=== PATIENT | male | born 1985 | race Caucasian/White ===

== ENCOUNTER 2024-05-01 10:11 | Outpatient (OUT) | payer BC, SELFPAY ==
[2024-05-01 11:00] LABS: Basophils Absolute Auto 0.1 10^3/uL (0.0-0.1); Basophils Percent Auto 1.1 % (0.2-2.0); Eosinophils Absolute Auto 0.1 10^3/uL (0.0-0.7); Eosinophils Percent Auto 1.9 % (0.9-7.0); Hematocrit 44.9 % (42.0-54.0); Hemoglobin 15.7 g/dL (14.0-18.0); Immature Granulocytes Abs Auto 0.02 10^3/uL (0.00-0.03); Immature Granulocytes Pct Auto 0.4 % (0.0-0.5); Lymphocytes Percent Auto 34.2 % (20.5-60.0); Mean Corpuscular Hemoglobin 29.5 pg (25.9-34.0); Mean Corpuscular Volume 84.2 fL (80.0-94.0); Monocytes Absolute Auto 0.4 10^3/uL (0.3-0.8); Monocytes Percent Auto 7.7 % (1.7-12.0); Neutrophils Absolute Auto 3.1 10^3/uL (1.4-6.5); Neutrophils Percent Auto 54.7 % (43.0-75.0); Platelet Count 307 10^3/uL (150-450); Red Blood Count 5.33 10^6/uL (4.70-6.10); Red Cell Distribution Width 11.9 % (11.0-15.0); White Blood Count 5.7 10^3/uL (4.0-11.0)
[2024-05-01 11:41] LABS: Alanine Aminotransferase 21 U/L (16-63); Albumin Globulin Ratio 1.3; Albumin Level 4.2 g/dL (3.4-5.0); Alkaline Phosphatase 60 U/L (46-116); Anion Gap 10.8; Aspartate Amino Transferase 15 U/L (15-37); BUN Creatinine Ratio 11.8; Bilirubin Direct 0.2 mg/dL (0.0-0.2); Bilirubin Total 1.4 mg/dL (0.2-1.0); Calcium 9.2 mg/dL (8.5-10.1); Carbon Dioxide 30.9 mmol/L (21.0-32.0); Chloride 105 mmol/L (98-107); Chol HDL Ratio 2.9; Cholesterol 175 mg/dL (<=200); Estimated GFR (African America >60 (>=60 mL/min/1.73m^2); Estimated GFR (Non-African Ame >60 (>=60 mL/min/1.73m^2); Globulin 3.3 g/dL; Glucose 109 mg/dL (74-106); HDL Cholesterol 60 mg/dL (40-60); LDL Cholesterol Calculated 91.6 mg/dL; Potassium 4.7 mmol/L (3.5-5.1); Sodium 142 mmol/L (136-145); Thyroid Stimulating Hormone 1.104 uIU/mL (0.358-3.740); Total Protein 7.5 g/dL (6.4-8.2); Triglycerides 117 mg/dL (<=150); VLDL CHOLESTEROL 23.4 mg/dL
[2024-05-01 11:46] LABS: Estimated Average Glucose 114 mg/dL; Glycohemoglobin A1C 5.6 % (4.5-6.2)
[2024-05-01 12:23] LABS: Prostate Specific Antigen Scrn 0.63 ng/mL (<=4.00)
== END 2024-05-01 10:12 | disposition home or self-care (01) ==
LOC: LAB 10:15
PROVIDERS: PCP Family Medicine; Visit Provider Family Medicine
DX: Z00.00 Encounter for general adult medical examination without abnormal findings (principal)
CPT/HCPCS: 36415; 80048; 80061; 80076; 83036; 84443; 85025; G0103

== ENCOUNTER 2024-08-04 15:57 | Outpatient (OUT) | payer BC, SELFPAY ==
--- NOTE | 2024-08-04 16:00 | XR_ITS ---
[place] [id number] Patient Name: HANNAH VELEZ MRN: [id number] date: 1985 Sex: M Assigned Patient Location: [facility] Current Patient Location: [facility] Accession/Order Number: [id number] Exam Date: 08/04/2024 17:09 Report Date: 08/04/2024 17:10 At the request of: DIA REYNOSO MD Procedure: XR lumbar spine 2-3V 2 views Lumbar Spine HISTORY: Left-sided lumbar pain for one week COMPARISON: None POSTSURGICAL CHANGES: None BONY ALIGNMENT: Adequate HYPERMOBILITY:No bending imaging. LISTHESIS:None FRACTURE: None DEGENERATIVE CHANGES: Unremarkable SOFT TISSUES: Unremarkable BONY MINERALIZATION:Adequate XR/XR lumbar spine 2-3V IMPRESSION: Unremarkable exam Impression dictated by: Milton Covarrubias M.D. 08/04/2024 5:10 PM Dictation Location: [place] [address] Electronically authenticated by: [id number] Y Date: 08/04/2024 17:10
--- OUTSIDE RECORDS SUMMARY | 2024-08-04 16:06 | XMS_ITS | CCD ---
Author Organization [facility] Care Team Providers Care Non Destructive Testing Inspector Name Role Phone DR DIA REYNOSO Consulting DR DIA Hunt Attending Unavailable DR DIA REYNOSO Admitting Dia Hunt MD Primary Care Provider [phone] Dia Reynoso MD Unavailable DIA REYNOSO Attending Unavailable DIA REYNOSO Attending Unavailable DIA REYNOSO Attending Unavailable Medications Current Medications Medication Drug Class(es) Dates Sig (Normalized) Sig (Original) cefdinir 300 mg oral capsule (2 sources) Cephalosporin Antibacterial Start: 12-12-2023 End: 12-22-2023 take 1 capsule by mouth in the morning cefdinir (Omnicef) 300 MG capsule Indications: Acute non-recurrent pansinusitis Take 1 capsule (300 mg) by mouth in the morning and 1 capsule (300 mg) before bedtime. Do all this for 10 days. 20 capsule 12/12/2023 12/22/2023 Active cyclobenzaprine hydrochloride 10 mg oral tablet (2 sources) Muscle Relaxant Start: 08-03-2024 take 1 tablet by mouth three times daily as needed for muscle spasms cyclobenzaprine (Flexeril) 10 MG tablet Indications: Acute left-sided low back pain with left-sided sciatica Take 1 tablet (10 mg) by mouth 3 (three) times a day as needed for muscle spasms 30 tablet 1 08/03/2024 Active predniSONE 50 mg oral tablet (4 sources) Start: 08-03-2024 End: 08-09-2024 take 1 tablet by mouth once daily predniSONE (Deltasone) 50 MG tablet Indications: Acute left-sided low back pain with left-sided sciatica Take 1 tablet (50 mg) by mouth Daily for 6 days 6 tablet 08/03/2024 08/09/2024 Active Start: 12-12-2023 End: 12-18-2023 take 1 tablet by mouth once daily predniSONE (Deltasone) 50 MG tablet Indications: Acute non-recurrent pansinusitis Take 1 tablet (50 mg) by mouth Daily for 6 days 6 tablet 12/12/2023 12/18/2023 Active terbinafine 250 mg oral tablet (2 sources) Allylamine Antifungal Start: 04-14-2024 End: 04-28-2024 take 1 tablet by mouth once daily terbinafine (LamISIL) 250 MG tablet Indications: Tinea versicolor Take 1 tablet (250 mg) by mouth Daily for 14 days 14 tablet 04/14/2024 04/28/2024 Active Problems Active Problems Problem Classification Problem Date Documented Da te Episodic/Chronic Spondylosis; intervertebral disc disorders; other back problems (4 sources) Acute back pain with sciatica; Translations: [Lumbago with sciatica, left side] Onset: 08-03-2024 08-03-2024 Episodic Past or Other Problems Problem Classification Problem Date Documented Da te Episodic/Chronic Mycoses (8 sources) Pityriasis versicolor; Translations: [Pityriasis versicolor] Onset: 04-14-2024 Resolved: 08-03-2024 04-14-2024 Episodic Other upper respiratory infections (11 sources) Acute pansinusitis; Translations: [Acute pansinusitis, unspecified] Onset: 12-12-2023 Resolved: 04-14-2024 12-12-2023 Episodic Results Test Name Value Interpretation Reference Range Facility ALL CBC WITH AUTO DIFFon BASOPHILS ABSOLUTE AUTO 0.1 [facility] Basophils/100 WBC (Bld) 1.1 % 0.2 - 2.0 % [facility] Eosinophils/100 WBC (Bld) 1.9 % 0.9 - 7.0 % [facility] Erythrocyte distribution width (RBC) [Ratio] 11.9 % 11.0 - 15.0 % [facility] Hematocrit (Bld) [Volume fraction] 44.9 % 42.0 - 54.0 [facility] [Mass/Vol] 15.7 g/dL 14.0 - 18.0 g/dL [facility] IMMATURE GRANULOCYTES ABS AUTO 0.02 [facility] Immature granulocytes/100 WBC (Bld) 0.4 % 0.0 - 0.5 % [facility] LYMPHOCYTES ABSOLUTE [facility]O 2 [facility] Lymphocytes/100 WBC (Bld) 34.2 % 20.5 - 60.0 % [facility] MCH (RBC) [Entitic mass] 29.5 pg 25.9 - 34.0 pg [facility] MCHC (RBC) [Mass/Vol] 35 g/dL 29.9 - 35.2 g/dL [facility] MCV (RBC) [Entitic vol] 84.2 fL 80.0 - 94.0 fL [facility] MONOCYTES ABSOLUTE AUTO 0.4 [facility] Monocytes/100 WBC (Bld) 7.7 % 1.7 - 12.0 % [facility] NEUTROPHILS ABSOLUTE AUTO 3.1 [facility] Neutrophils/100 WBC (Bld) 54.7 % 43.0 - 75.0 % [facility] Platelet mean volume (Bld) [Entitic vol] 10 fL 9.5 - 13.5 fL [facility] EO # 0.1 [facility] PLT 307 [facility] RBC 5.33 [facility] WBC 5.7 [facility] CBC AUTO DIFFon 01-16-2022 BASO # 0.1 103/ul Normal 0.0-0.1 [facility] Comment on above: Performed By: #### C BC #### [facility] [address] [place] [address] Dr. Debi Hawley Basophils/100 WBC (Bld) 0.7 % Normal 0.2-2.0 [facility] Comment on above: Performed By: #### C BC #### [facility] [address] [place] [address] Dr. Debi Hawley EO # 0.1 103/ul Normal 0.0-0.7 [facility] Comment on above: Performed By: #### C BC #### [facility] [address] [address] [address] Debi Hawley Eosinophils/100 WBC (Bld) 1.2 % Normal 0.9-7.0 [facility] Comment on above: Performed By: #### C BC #### [facility] [address] [address] [address] Debi Hawley Erythrocyte distribution width (RBC) [Ratio] 12.1 % Normal 11.0-15.0 [facility] Comment on above: Performed By: #### C BC #### [facility] [address] [place] [address] Dr. Debi Hawley Hematocrit (Bld) [Volume fraction] 44.6 % Normal 42.0-54.0 [facility] Comment on above: Performed By: #### C BC #### [facility] [address] [place] [address] Dr. Debi Hawley Hemoglobin (Bld) [Mass/Vol] 15.1 g/dL Normal 14.0-18.0 [facility] Comment on above: Performed By: #### C BC #### [facility] [address] [place] [address] Dr. Debi Hawley IG # 0.02 10e3/ul Normal 0.00-0.03 [facility] Comment on above: Performed By: #### C BC #### [facility] [address] [place] [address] Dr. Debi Hawley IG % 0.2 % Normal 0.0-0.5 [facility] Comment on above: Performed By: #### C BC #### [facility] [address] [place] [address] Dr. Debi Hawley LYMPH # 2.5 103/ul Normal 1.2-3.8 [facility] Comment on above: Performed By: #### C BC #### [facility] [address] [place] [address] Dr. Debi Hawley Lymphocytes/100 WBC (Bld) 29.9 % Normal 20.5-60.0 [facility] Comment on above: Performed By: #### C BC #### [facility] [address] [place] [address] Dr. Debi Hawley MANUAL DIFF REQ NO Normal [facility] Comment on above: Performed By: #### C BC #### [facility] [address] [place] [address] Dr. Debi Hawley MCH (RBC) [Entitic mass] 28.7 pg Normal 25.9-34.0 [facility] Comment on above: Performed By: #### C BC #### [facility] [address] [place] [address] Dr. Debi Hawley MCHC (RBC) [Mass/Vol] 33.9 g/dL Normal 29.9-35.2 [facility] Comment on above: Performed By: #### C BC #### [facility] [address] [place] [address] Dr. Debi Hawley MCV (RBC) [Entitic vol] 84.8 fL Normal 80.0-94.0 [facility] Comment on above: Performed By: #### C BC #### [facility] [address] [place] [address] Dr. Debi Hawley MONO # 0.7 103/ul Normal 0.3-0.8 [facility] Comment on above: Performed By: #### C BC #### [facility] [address] [place] [address] Dr. Debi Hawley Monocytes/100 WBC (Bld) 7.8 % Normal 1.7-12.0 [facility] Comment on above: Performed By: #### C BC #### [facility] [address] [place] [address] Dr. Debi Hawley NEUT # 5.1 103/ul Normal 1.4-6.5 [facility] Comment on above: Performed By: #### C BC #### [facility] [address] [place] [address] Dr. Debi Hawley Neutrophils/100 WBC (Bld) 60.2 % Normal 43.0-75.0 [facility] Comment on above: Performed By: #### C BC #### [facility] [address] [place] [address] Dr. Debi Hawley Platelet mean volume (Bld) [Entitic vol] 9.8 fL Normal 9.5-13.5 [facility] Comment on above: Performed By: #### C BC #### [facility] [address] [place] [address] Dr. Debi Hawley PLT 328 103/ul Normal 150-450 [facility] Comment on above: Performed By: #### C BC #### [facility] [address] [address] [address] Debi Hawley RBC 5.26 106/ul Normal 4.70-6.10 [facility] Comment on above: Performed By: #### C BC #### [facility] [address] [address] [address] Debi Hawley WBC 8.5 103/ul Normal 4.0-11.0 [facility] Comment on above: Performed By: #### C BC #### [facility] [address] [address] [address] Debi Hawley GLYCOHEMOGLOBIN A1Con 2021 ADA RECOMMENDATION SEE BELOW Normal [facility] [place] Comment on above: Result Comment: ADA RECOMMENDED LIMIT 4.0 - 6.0 ADA THERAPEUTIC TARGET < 7.0 ACTION SUGGESTED > 7.0 Performed By: #### A 1C #### [facility] [address] [place] [address] Dr. Debi Hawley Glucose [Mass/Vol] 117 mg/dL Normal [facility] [place] Comment on above: Performed By: #### A 1C #### [facility] [address] [place] [address] Dr. Debi Hawley HbA1c (Bld) [Mass fraction] 5.7 % Normal 4.5-6.2 [facility] Comment on above: Performed By: #### A 1C #### [facility] [address] [place] [address] Dr. Debi Hawley LIPID PROFILEon 01-16-2022 CHOL-HDL RATIO NORM SEE BELOW Normal [facility] Comment on above: Result Comment: 3.3 - 4.4 LOW RISK 4.4 - 7.1 AVERAGE RISK 7.1 - 11.0 MODERATE RISK >11.0 HIGH RISK Performed By: #### L IVER, TSH, BMP, LIPID #### [facility] [address] [place] [address] Dr. Debi Hawley Cholesterol [Mass/Vol] 167 mg/dL Normal <=200 [facility] Comment on above: Performed By: #### L IVER, TSH, BMP, LIPID #### [facility] [address] [address] [address] Debi Hawley Cholesterol in HDL [Mass/Vol] 54 mg/dL Normal 40-60 [facility] Comment on above: Performed By: #### L IVER, TSH, BMP, LIPID #### [facility] [address] [address] [address] Debi Hawley Cholesterol in LDL [Mass/Vol] 50.8 mg/dL Normal [facility] Comment on above: Performed By: #### L IVER, TSH, BMP, LIPID #### [facility] [address] [address] [address] Debi Hawley Cholesterol.total/Cho lesterol in HDL [Mass ratio] 3.1 {ratio} Normal [facility] Comment on above: Performed By: #### L IVER, TSH, BMP, LIPID #### [facility] [address] [address] [address] Debi Hawley HDL NORMAL > or = 60 mg/dl - LOW CARDIOVASCULAR RISK <40 mg/dl - HIGH CARDIOVASCULAR RISK Normal [facility] Comment on above: Performed By: #### L IVER, TSH, BMP, LIPID #### [facility] [address] [address] [address] Debi Hawley LDL CALC NORMAL SEE BELOW Normal [facility] Comment on above: Result Comment: <100 mg/dl OPTIMAL 100 - 129 mg/dl NEAR OR ABOVE OPTIMAL 130 - 159 mg/dl BORDERLINE HIGH 160 - 189 mg/dl HIGH >190 mg/dl VERY HIGH Performed By: #### L IVER, TSH, BMP, LIPID #### [facility] [address] [address] [address] Debi Hawley Triglyceride [Mass/Vol] 311 mg/dL Critically high <=150 [facility] Comment on above: Performed By: #### L IVER, TSH, BMP, LIPID #### [facility] [address] [address] [address] Debi Hawley VLDL CALC 62.2 mg/dL Normal [facility] Comment on above: Performed By: #### L IVER, TSH, BMP, LIPID #### [facility] [address] [place] [address] Dr. Debi Hawley LIVER PROFILEon 01-16-2022 Albumin [Mass/Vol] 4.3 g/dL Normal 3.4-5.0 [facility] [place] Comment on above: Performed By: #### L IVER, TSH, BMP, LIPID #### [facility] [address] [place] [address] Dr. Debi Hawley Albumin/Globulin [Mass ratio] 1.2 {ratio} Normal [facility] Comment on above: Performed By: #### L IVER, TSH, BMP, LIPID #### [facility] [address] [place] [address] Dr. Debi Hawley ALP [Catalytic activity/Vol] 66 U/L Normal 46-116 [facility] Comment on above: Performed By: #### L IVER, TSH, BMP, LIPID #### [facility] [address] [place] [address] Dr. Debi Hawley ALT [Catalytic activity/Vol] 26 U/L Normal 16-63 [facility] Comment on above: Performed By: #### L IVER, TSH, BMP, LIPID #### [facility] [address] [place] [address] Dr. Debi Hawley AST [Catalytic activity/Vol] 12 U/L Critically low 15-37 [facility] Comment on above: Performed By: #### L IVER, TSH, BMP, LIPID #### [facility] [address] [place] [address] Dr. Debi Hawley BILI, CONJUGATED 0.2 mg/dL Normal 0.0-0.2 [facility] Comment on above: Performed By: #### L IVER, TSH, BMP, LIPID #### [facility] [address] [place] [address] Dr. Debi Hawley Bilirubin [Mass/Vol] 1.2 mg/dL Critically high 0.2-1.0 [facility] Comment on above: Performed By: #### L IVER, TSH, BMP, LIPID #### [facility] [address] [address] [address] Debi Hawley Globulin (S) [Mass/Vol] 3.5 g/dL Normal [facility] Comment on above: Performed By: #### L IVER, TSH, BMP, LIPID #### [facility] [address] [place] [address] Dr. Debi Hawley Protein [Mass/Vol] 7.8 g/dL Normal 6.4-8.2 [facility] Comment on above: Performed By: #### L IVER, TSH, BMP, LIPID #### [facility] [address] [address] [address] Debi Hawley PROF CHEM 8 (BAS METB)on Anion gap [Moles/Vol] 8.5 mmol/L Normal [facility] Comment on above: Performed By: #### L IVER, TSH, BMP, LIPID #### [facility] [address] [place] [address] Dr. Debi Hawley Calcium [Mass/Vol] 9.0 mg/dL Normal 8.5-10.1 [facility] Comment on above: Performed By: #### L IVER, TSH, BMP, LIPID #### [facility] [address] [place] [address] Dr. Debi Hawley Chloride [Moles/Vol] 104 mmol/L Normal 98-107 [facility] Comment on above: Performed By: #### L IVER, TSH, BMP, LIPID #### [facility] [address] [place] [address] Dr. Debi Hawley CO2 [Moles/Vol] 33.6 mmol/L Critically high 21.0-32.0 [facility] Comment on above: Performed By: #### L IVER, TSH, BMP, LIPID #### [facility] [address] [place] [address] Dr. Debi Hawley Creatinine [Mass/Vol] 1.55 mg/dL Critically high 0.70-1.30 [facility] Comment on above: Performed By: #### L IVER, TSH, BMP, LIPID #### [facility] [address] [address] [address] Debi Hawley EGFR-AF CYMRO >60 Normal >=60 [facility] Comment on above: Performed By: #### L IVER, TSH, BMP, LIPID #### [facility] [address] [address] [address] Debi Hawley EGFR-NON AF CYMRO 50 mL/min/1.73m2 Critically low >=60 [facility] Comment on above: Performed By: #### L IVER, TSH, BMP, LIPID #### [facility] [address] [place] [address] Dr. Debi Hawley Glucose [Mass/Vol] 107 mg/dL Critically high 74-106 T [facility] Comment on above: Performed By: #### L IVER, TSH, BMP, LIPID #### [facility] [address] [address] [address] Debi Hawley Potassium [Moles/Vol] 4.1 mmol/L Normal 3.5-5.1 [facility] Comment on above: Performed By: #### L IVER, TSH, BMP, LIPID #### [facility] [address] [address] [address] Debi Hawley Sodium [Moles/Vol] 142 mmol/L Normal 136-145 [facility] [place] Comment on above: Performed By: #### L IVER, TSH, BMP, LIPID #### [facility] [address] [address] [address] Debi Hawley Urea nitrogen [Mass/Vol] 12.0 mg/dL Normal 7.0-18.0 [facility] Comment on above: Performed By: #### L IVER, TSH, BMP, LIPID #### [facility] [address] [address] [address] Debi Hawley Urea nitrogen/Creatinine [Mass ratio] 7.7 mg/mg Normal [facility] Comment on above: Performed By: #### L IVER, TSH, BMP, LIPID #### [facility] [address] [address] [address] Debi Hawley TSHon 01-16-2022 TSH 1.354 uIU/mL Normal 0.358-3.740 [facility] Comment on above: Performed By: #### L IVER, TSH, BMP, LIPID #### [facility] [address] [place] [address] Dr. Debi Hawley Vital Signs Date Time Vital Sign Value Performing Clinician Devonte farias 08-03-2024 13:58-0400 Body height 186.7 cm Dia Reynoso MD Work Phone: [facility] 08-03-2024 13:58-0400 Body mass index (BMI) [Ratio] 25.38 kg/m2 Dia Reynoso MD Work Phone: [facility] 08-03-2024 13:58-0400 Body temperature 98.01 [degF] Dia Reynoso MD Work Phone: [facility] 08-03-2024 13:58-0400 Body weight 88.45 kg Dia Reynoso MD Work Phone: [facility] 08-03-2024 13:58-0400 Diastolic blood pressure 76 mm[Hg] Dia Reynoso MD Work Phone: [facility] 08-03-2024 13:58-0400 Heart rate 75 /min Dia Reynoso MD Work Phone: [facility] 08-03-2024 13:58-0400 Respiratory rate 16 /min Dia Reynoso MD Work Phone: [facility] 08-03-2024 13:58-0400 SaO2% (BldA) [Mass fraction] 99 % Dia Reynoso MD Work Phone: [facility] 08-03-2024 13:58-0400 Systolic blood pressure 122 mm[Hg] Dia Reynoso MD Work Phone: [facility] 04-14-2024 15:32-0500 Body height 186.7 cm Dia Reynoso MD Work Phone: [facility] 04-14-2024 15:32-0500 Body mass index (BMI) [Ratio] 25.9 kg/m2 Dia Reynoso MD Work Phone: [facility] 04-14-2024 15:32-0500 Body temperature 97.11 [degF] Dia Reynoso MD Work Phone: [facility] 04-14-2024 15:32-0500 Body weight 90.27 kg Dia Reynoso MD Work Phone: [facility] 04-14-2024 15:32-0500 Diastolic blood pressure 58 mm[Hg] Dia Reynoso MD Work Phone: [facility] 04-14-2024 15:32-0500 Heart rate 73 /min Dia Reynoso MD Work Phone: [facility] 04-14-2024 15:32-0500 Respiratory rate 20 /min Dia Reynoso MD Work Phone: [facility] 04-14-2024 15:32-0500 SaO2% (BldA) [Mass fraction] 98 % Dia Reynoso MD Work Phone: [facility] 04-14-2024 15:32-0500 Systolic blood pressure 106 mm[Hg] Dia Reynoso MD Work Phone: [facility] 12-12-2023 14:28-0400 Body height 188 cm Dia Reynoso MD Work Phone: [facility] 12-12-2023 14:28-0400 Body mass index (BMI) [Ratio] 25.29 kg/m2 Dia Reynoso MD Work Phone: [facility] 12-12-2023 14:28-0400 Body temperature 97.7 [degF] Dia Reynoso MD Work Phone: [facility] 12-12-2023 14:28-0400 Body weight 89.36 kg Dia Reynoso MD Work Phone: [facility] 12-12-2023 14:28-0400 Diastolic blood pressure 84 mm[Hg] Dia Reynoso MD Work Phone: [facility] 12-12-2023 14:28-0400 Heart rate 74 /min Dia Reynoso MD Work Phone: [facility] 12-12-2023 14:28-0400 SaO2% (BldA) [Mass fraction] 98 % Dia Reynoso MD Work Phone: [facility] 12-12-2023 14:28-0400 Systolic blood pressure 110 mm[Hg] Dia Reynoso MD Work Phone: [facility] Encounters Encounter Date Encounter Type Care Provider Facility Start: 08-03-2024 End: 08-03-2024 Bamboo flowsheet Dia Reynoso MD Work Phone: [facility] Start: 08-03-2024 End: 08-03-2024 Bamboo flowsheet Dia Reynoso MD Work Phone: [facility] Start: 08-03-2024 End: 08-03-2024 Office outpatient visit 15 minutes Dia Reynoso MD Work Phone: [facility] Comment on above: Acute left-sided low back pain with left-sided sciatica (Primary Dx) Start: 08-03-2024 End: 08-03-2024 ambulatory DIA REYNOSO Not Available Start: 05-01-2024 End: 05-01-2024 [facility] Result Encounter Dia Reynoso MD Work Phone: [facility] Unsolicited Start: 05-01-2024 End: 05-01-2024 [facility] Result Encounter Dia Reynoso MD Work Phone: [facility] Unsolicited Start: 04-14-2024 End: 04-14-2024 Periodic preventive med est patient 40-64yrs Dia Reynoso MD Work Phone: [facility] Comment on above: Annual physical exam (Primary Dx); Tinea versicolor Start: 04-14-2024 End: 04-14-2024 ambulatory DIA REYNOSO Not Available Start: 04-14-2024 End: 04-14-2024 Bamboo flowsheet Dia Reynoso MD Work Phone: [facility] Start: 04-14-2024 End: 04-14-2024 Bamboo flowsheet Dia Reynoso MD Work Phone: [facility] Start: 04-14-2024 End: 04-14-2024 Patient encounter procedure Dia Reynoso MD Work Phone: [facility] Work Phone: Start: 12-12-2023 End: 12-12-2023 Office outpatient new 30 minutes Dia Reynoso MD Work Phone: [facility] Comment on above: Acute non-recurrent pansinusitis (Primary Dx) Start: 12-12-2023 End: 12-12-2023 ambulatory DIA REYNOSO Not Available Start: 12-12-2023 End: 12-12-2023 Bamboo flowsheet Dia Reynoso MD Work Phone: [facility] Start: 12-12-2023 End: 12-12-2023 Bamboo flowsheet Dia Reynoso MD Work Phone: [facility] Start: 01-19-2022 Encounter for genera l adult medical examination without abnormal findings DR DIA REYNOSO [facility] Start: 01-16-2022 End: 01-17-[address] DIA REYNOSO Facility:[facility] Start: 01-16-2022 End: 01-17-2022 Encounter for general adult medical examination without abnormal findings DR DIA REYNOSO Facility:[facility] Procedures Date Procedure Procedure Detail Performing Clinician Start: 05-01-2024 ALL CBC WITH AUTO DIFF Dia Reynoso MD Work Phone: Plan of Treatment Date Care Activity Detail Author Start: 11-16-2024 Influenza vaccination Influenz a Vaccine (Season Ended) [facility] Start: 08-03-2024 End: 08-03-2025 XR Lumbar spine 2 or 3 Views XR lumbar spine 2 or 3 views Imaging Routine Acute left-sided low back pain with left-sided sciatica Expected: 08/03/2024, Expires: 08/03/2025 [facility] Work Phone: Comment on above: Expected: 08/03/2024 , Expires: 08/03/2025 Start: 08-03-2024 End: 08-03-2024 Patient encounter procedure 08/03/2024 1:45 PM EDT Office Visit [facility] [address] [place] [id number] Dia Reynoso MD [address] [place] [id number] Arrived [facility] Comment on above: Arrived Start: 04-14-2024 End: 04-14-2024 Patient encounter procedure 04/14/2024 3:30 PM EST Office Visit [facility] [address] [place] [address] Dia Reynoso MD [address] [place] [id number] Arrived [facility] Comment on above: Arrived Start: 04-14-2024 End: 04-14-2025 Basic metabolic 1998 panel - Serum or Plasma Basic metabolic panel Lab Routine Annual physical exam Expected: 04/14/2024 (Approximate), Expires: 04/14/2025 [facility] Work Phone: Comment on above: Expected: 04/14/2024 (Approximate), Expires: 04/14/2025 Start: 04-14-2024 End: 04-14-2025 CBC W Auto Differential panel - Blood CBC and differential Lab Routine Annual physical exam Expected: 04/14/2024 (Approximate), Expires: 04/14/2025 [facility] Comment on above: Expected: 04/14/2024 (Approximate), Expires: 04/14/2025 Start: 04-14-2024 End: 04-14-2025 Hemoglobin A1c/Hemoglobin.total in Blood Hemoglobin A1c Lab Routine Annual physical exam Expected: 04/14/2024 (Approximate), Expires: 04/14/2025 [facility] Comment on above: Expected: 04/14/2024 (Approximate), Expires: 04/14/2025 Start: 04-14-2024 End: 04-14-2025 Hepatic function 2000 panel - Serum or Plasma Hepatic function panel Lab Routine Annual physical exam Expected: 04/14/2024 (Approximate), Expires: 04/14/2025 [facility] Comment on above: Expected: 04/14/2024 (Approximate), Expires: 04/14/2025 Start: 04-14-2024 End: 04-14-2025 Lipid 1996 panel - Serum or Plasma Lipid panel Lab Routine Annual physical exam Expected: 04/14/2024 (Approximate), Expires: 04/14/2025 [facility] Comment on above: Expected: 04/14/2024 (Approximate), Expires: 04/14/2025 Start: 04-14-2024 End: 04-14-2025 Prostate specific Ag [Mass/volume] in Serum or Plasma PSA Lab Routine Annual physical exam Expected: 04/14/2024 (Approximate), Expires: 04/14/2025 [facility] Comment on above: Expected: 04/14/2024 (Approximate), Expires: 04/14/2025 Start: 04-14-2024 End: 04-14-2025 Thyrotropin [Units/volume] in Serum or Plasma TSH Lab Routine Annual physical exam Expected: 04/14/2024 (Approximate), Expires: 04/14/2025 [facility] Comment on above: Expected: 04/14/2024 (Approximate), Expires: 04/14/2025 Start: 12-12-2023 End: 12-12-2023 Patient encounter procedure 12/12/2023 2:30 PM EDT Office Visit [facility] [address] [place] [phone] Dia Reynoso MD [address] [place] [phone] Arrived [facility] Comment on above: Arrived Start: 11-17-2023 Influenza vaccination Influenza Vacc ine (#1) [facility] Payers Date Payer Category Payer Blue Cross Blue Shield [id number] 2021 Unknown BCBS BCBS [id number] 2021-Present [phone] [address] [place] [address] [id number] 1983 Unknown [id number] 1983 Unknown [id number] 1983 Unknown [id number] 1983 Unknown [id number] 1959 Unknown [id number] 1959 Unknown [id number] Social History Date Type Detail Facility Start: [facility]12[facility]23 [facility] History of tobacco use Cigarette Smoker [facility] History of tobacco use Passive smoker [facility] Start: 12-12-2023 Tobacco use and exposure Smokeless t obacco non-user [facility] Start: 12-12-2023 End: 08-03-2024 Alcoholic beverage intake Current drinker of alcohol (finding) [facility] Start: 12-12-2023 End: 04-12-2024 History of Social function [facility] Start: 12-12-2023 End: 04-12-2024 Tobacco use panel [facility] Start: 12-12-2023 Alcohol Comment occassionally [facility] Start: 1985 Sex assigned at Not on file [facility] Tobacco smoking stat [facility] Tobacco smoking consumption unknown [facility] How often do you nee d to have someone help you when you read instructions, pamphlets, or other written material from your doctor or pharmacy [SILS] Never [facility] Do you belong to any clubs or organizations such as mu-ism groups, unions, fraternal or athletic groups, or school groups? Yes [facility] Are you now , , , , never or living with a partner? [facility] How often to you hav e a drink containing alcohol? Monthly or less [facility] How many standard dr inks containing alcohol do you have on a typical day? 3 or 4 [facility] How often do you hav e 6 or more drinks on 1 occasion? Less than monthly [facility] How hard is it for y ou to pay for the very basics like food, housing, medical care, and heating Somewhat hard [facility] Do you feel stress - tense, restless, nervous, or anxious, or unable to sleep at night because your mind is troubled all the time - these days [OSQ] Not at all [facility] (I/We) worried wheth er (my/our) food would run out before (I/we) got money to buy more. Never true [facility] In the past 12 month s, was there a time when you were not able to pay the mortgage or rent on time? No [facility] How often do you nee d to have someone help you when you read instructions, pamphlets, or other written material from your doctor or pharmacy [SILS] Never [facility] History of Present illness Narrative 08-03-2024 Dia Reynoso MD - 08/03/2024 2:26 PM EDTMpauline Reynoso MD - 08/03/2024 1:45 PM EDT Note Date & Type Note Facility 08-03-2024 History of Presen t illness Narrative Associated Problem(s): Acute left-sided low back pain with left-sided sciatica Increased pain and possible DDD. Check x-ray. Start prednisone for inflammation and flexeril for spasms. Use heat or massage PRN. Handout with ROM exercises to patient. Images from the original note were not included. Subjective Patient ID: Hever Sanabria is a 38 y.o. male who presents for Back Pain (Ongoing since last saturday). C/o low back pain for the past week. No specific fall, injury, or trauma. Patient was playing basketball and discomfort later. Pain worsened then developed tightness and spasms. Severe pain in left low back. Pain into left gluteal region and down left leg. Pain with sitting and activity. Feels better to stand. Sleeping on floor because bed not comfortable. Using OTC and not much relief. To chiropractor and adjustment helped. Review of Systems Constitutional: Negative for fatigue. Respiratory: Negative for cough, shortness of breath and wheezing. Cardiovascular: Negative for chest pain and palpitations. Gastrointestinal: Negative for abdominal pain, diarrhea, nausea and vomiting. Genitourinary: Negative for dysuria. Objective Physical Exam Constitutional: General: He is not in acute distress. Appearance: Normal appearance. HENT: Head: Normocephalic. Right Ear: Tympanic membrane and ear canal normal. Left Ear: Tympanic membrane and ear canal normal. Eyes: Extraocular Movements: Extraocular movements intact. Pupils: Pupils are equal, round, and reactive to light. Cardiovascular: Rate and Rhythm: Normal rate and regular rhythm. Heart sounds: No murmur heard. No friction rub. No gallop. Pulmonary: Breath sounds: Normal breath sounds. No wheezing, rhonchi or rales. Abdominal: General: Bowel sounds are normal. There is no distension. Palpations: Abdomen is soft. Tenderness: There is no abdominal tenderness. There is no guarding or rebound. Musculoskeletal: Left lower leg: No edema. Neurological: Mental Status: He is alert. Assessment/Plan Problem List Items Addressed This Visit Acute left-sided low back pain with left-sided sciatica - Primary Increased pain and possible DDD. Check x-ray. Start prednisone for inflammation and flexeril for spasms. Use heat or massage PRN. Handout with ROM exercises to patient. Relevant Medications predniSONE (Deltasone) 50 MG tablet cyclobenzaprine (Flexeril) 10 MG tablet Other Relevant Orders XR lumbar spine 2 or 3 views documented in this encounter [facility] History of Present illness Narrative 04-14-2024 Dia Reynoso MD - 04/14/2024 4:19 PM Laura Reynoso MD - 04/14/2024 4:19 PM Laura Reynoso MD - 04/14/2024 3:30 PM EST Note Date & Type Note Facility 04-14-2024 History of Presen t illness Narrative Associated Problem(s): Tinea versicolor Rash off and on for years and not resolved with OTC anti-fungal cream. Treat with oral lamasil. Associated Problem(s): Annual physical exam Due for labs. Discussed proper diet and regular aerobic exercise. Need aerobic exercise 5-6 days a week for 30 minutes at a time. Smaller portions and limit total calories. Colonoscopy after age 45. Tetanus every 10 years. Advised not to smoke. Images from the original note were not included. Subjective Patient ID: Hever Sanabria is a 38 y.o. male who presents for Follow-up (Check up) and Rash (On back and abdomin ). Presents for annual PE. Weight unchanged over the past year. 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 Tries to watch diet and eat healthy. Increased fruits and vegetables. Smaller portions and limits snacking. Tries to limit total daily calories. Due for labs. C/o rash on abdomen and back off and on for years but never completely resolving. Rash red and itchy. At times scaly and crusted. Review of Systems Constitutional: Negative for fatigue. Respiratory: Negative for cough, shortness of breath and wheezing. Cardiovascular: Negative for chest pain and palpitations. Gastrointestinal: Negative for abdominal pain, diarrhea, nausea and vomiting. Genitourinary: Negative for dysuria. Objective Physical Exam Constitutional: General: He is not in acute distress. Appearance: Normal appearance. HENT: Head: Normocephalic. Right Ear: Tympanic membrane and ear canal normal. Left Ear: Tympanic membrane and ear canal normal. Eyes: Extraocular Movements: Extraocular movements intact. Pupils: Pupils are equal, round, and reactive to light. Cardiovascular: Rate and Rhythm: Normal rate and regular rhythm. Heart sounds: No murmur heard. No friction rub. No gallop. Pulmonary: Breath sounds: Normal breath sounds. No wheezing, rhonchi or rales. Abdominal: General: Bowel sounds are normal. There is no distension. Palpations: Abdomen is soft. Tenderness: There is no abdominal tenderness. There is no guarding or rebound. Musculoskeletal: General: Normal range of motion. Left lower leg: No edema. Neurological: General: No focal deficit present. Mental Status: He is alert. Cranial Nerves: No cranial nerve deficit. Deep Tendon Reflexes: Reflexes normal. Assessment/Plan Problem List Items Addressed This Visit Annual physical exam - Primary Due for labs. Discussed proper diet and regular aerobic exercise. Need aerobic exercise 5-6 days a week for 30 minutes at a time. Smaller portions and limit total calories. Colonoscopy after age 45. Tetanus every 10 years. Advised not to smoke. Relevant Orders Basic metabolic panel Hemoglobin A1c CBC and differential Lipid panel Hepatic function panel PSA TSH Tinea versicolor Rash off and on for years and not resolved with OTC anti-fungal cream. Treat with oral lamasil. Relevant Medications terbinafine (LamISIL) 250 MG tablet documented in this encounter [facility] History of Present illness Narrative 12-12-2023 Dia Reynoso MD - 12/12/2023 2:30 PM EDT Note Date & Type Note Facility 12-12-2023 History of Presen t illness Narrative Images from the original note were not included. Subjective Patient ID: Hever Sanabria is a 37 y.o. male who presents for URI (H/A, sore throat, ear pressure, SOB, cough x 4 days, ildren have been sick in the home previous. OTC Tylenol Cold and Flu). Over 3 years since last visit. C/o cough, congestion and rhinorrhea x 1 week. C/o hot and sweaty but afebrile. Severe fatigue and no energy. C/o body aches. Mild cough dry and nonproductive. Denies chest tightness or SOB. FOY and sinus pressure in forehead and cheeks along with postnasal drip. Ears plugged and popping. Sore throat and pain to swallow. Mild nausea. Kids recently sick. Using OTC medication and mild relief. No improvement in symptoms since onset. Review of Systems Constitutional: Negative for fatigue. Respiratory: Negative for cough, shortness of breath and wheezing. Cardiovascular: Negative for chest pain and palpitations. Gastrointestinal: Negative for abdominal pain, diarrhea, nausea and vomiting. Genitourinary: Negative for dysuria. Objective Physical Exam Constitutional: General: He is not in acute distress. Appearance: Normal appearance. HENT: Head: Normocephalic. Ears: Comments: Bilateral TM clear but bulging with fluid Eyes: Extraocular Movements: Extraocular movements intact. Pupils: Pupils are equal, round, and reactive to light. Cardiovascular: Rate and Rhythm: Normal rate and regular rhythm. Heart sounds: No murmur heard. No friction rub. No gallop. Pulmonary: Breath sounds: Normal breath sounds. No wheezing, rhonchi or rales. Abdominal: General: Bowel sounds are normal. There is no distension. Palpations: Abdomen is soft. Tenderness: There is no abdominal tenderness. There is no guarding or rebound. Musculoskeletal: Left lower leg: No edema. Neurological: Mental Status: He is alert. Assessment/Plan Problem List Items Addressed This Visit Acute non-recurrent pansinusitis - Primary Relevant Medications cefdinir (Omnicef) 300 MG capsule predniSONE (Deltasone) 50 MG tablet documented in this encounter [facility] Evaluation note Note Date & Type Note Facility Evaluation note Diagnosis Acute non-recurrent pansinusitis- Primary documented in this encounter [facility] Evaluation note Note Date & Type Note Facility Evaluation note Diagnosis Annual physical exam- Primary Routine general medical examination at a health care facility Tinea versicolor Pityriasis versicolor documented in this encounter [facility] Evaluation note Note Date & Type Note Facility Evaluation note Diagnosis Annual physical exam- Primary Routine general medical examination at a health care facility Tinea versicolor Pityriasis versicolor Acute left-sided low back pain with left-sided sciatica- Primary documented in this encounter [facility] Summary Purpose Family History No Family History Records FoundNo Family History Records Found Advance Directives No Advanced Directives Records FoundNo Advanced Directives Records Found Additional Source Comments (unrecognized sect ion and content) No Status Records FoundNo Status Records Found INFORMATION SOURCE (unrecogn ized section and content) DATE CREATED AUTHOR 01/20/2022 [facility] DATE CREATED AUTHOR AUTHOR'S ORGANIZ ATION 08/04/2024 [facility] Reason for Visit (unrecogniz ed section and content) Reason Comments URI H/A, sore throat, ea r pressure, SOB, cough x 4 days, ildren have been sick in the home previous. OTC Tylenol Cold and Flu Reason Comments Follow-up Check up Rash On back and abdomin Reason Comments Back Pain Ongoing since last t uesday Care Teams (unrecognized sec tion and content) Non Destructive Testing Inspector Relationship Specialty Start Date End Date Dia Reynoso MD [address] [place] [phone] PCP - General Family Medicine 12/11/23 Non Destructive Testing Inspector Relationship Specialty Start Date End Date Dia Reynoso MD [address] [place] [phone] PCP - General Family Medicine 12/11/23 Non Destructive Testing Inspector Relationship Specialty Start Date End Date Dia Reynoso MD [address] [place] [phone] PCP - General Family Medicine 12/11/23 Dia Reynoso MD [address] [place] [phone] PCP - [facility] 01/17/24 Non Destructive Testing Inspector Relationship Specialty Start Date End Date Dia Reynoso MD [address] [place] [phone] PCP - General Family Medicine 12/11/23 Dia Reynoso MD [address] [place] [phone] PCP - [facility] 01/17/24 Non Destructive Testing Inspector Relationship Specialty Start Date End Date Dia Reynoso MD [address] [place] [phone] PCP - General Family Medicine 12/11/23 Dia Reynoso MD [address] [place] [phone] PCP - [facility] 01/17/24 Non Destructive Testing Inspector Relationship Specialty Start Date End Date Dia Reynoso MD [address] [place] [address] PCP [facility] 12/11/23 Non Destructive Testing Inspector Relationship Specialty Start Date End Date Dia Reynoso MD [address] [place] [phone] PCP - General Family Medicine 12/11/23 FOR RECORDS PERTAINING TO PATIENTS WHO ARE OR HAVE BEEN ENROLLED IN A CHEMICAL DEPENDENCY/SUBSTANCEABUSE PROGRAM, SOME INFORMATION MAY BE OMITTED. This clinical summary was aggregated from multiple sources. Caution should be exercised in using it in the provision of clinical care. This summary normalizes information from multiple sources, and as a consequence, information in this document may materially change the coding, format and clinical context of patient data. In addition, data may be omitted in some cases. CLINICAL DECISIONS SHOULD BE BASED ON THE PRIMARY CLINICAL RECORDS. [facility] [employer] [facility]. provides no warranty or guarantee of the accuracy or completeness of information in this document.
== END 2024-08-04 15:58 | disposition home or self-care (01) ==
LOC: RAD 15:57
PROVIDERS: PCP Family Medicine; Visit Provider Family Medicine
DX: M54.42 Lumbago with sciatica, left side (principal)
CPT/HCPCS: 72100